=== PATIENT | female | born 1985 | race Caucasian/White ===

== ENCOUNTER 2019-01-10 09:05 | Day surgery (SDC) | payer OTHER ==
--- NOTE | 2019-01-10 09:14 | PDOC.FPROB ---
FMR OB H&P: HPI - History of Present Illness Chief Complaint: Scheduled iron transfusion History of Present Illness: 33 yo @ 34.5 by 7.6 wk US presents for iron transfusion for anemia of . She reports taking oral iron BID, not taking vitamins. Has had consistent drops in Hgb, reportedly 8 this week. Reports intermittent headache associated with blurry vision, as well as weakness, dizziness over past week. Denies prior history of anemia in and has never had iron transfusion before. 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 denies: fever/chills Eyes: reports: vision changes ENT: denies: nasal congestion Cardiovascular: denies: palpitation, edema Respiratory: reports: shortness of breath. denies: cough Gastrointestinal: reports: constipation. denies: nausea, vomiting Genitourinary (Female): denies: dysuria, vaginal discharge, vaginal bleeding, contractions Neurologic: reports: weakness, headache. denies: syncope Integumentary: denies: rash, lesions FMR OB H&P: Vital Signs - Maternal Vital signs: BP 111/73, 85 - Heart Tones Baseline: 150 Variability: moderate Acceleration: present Deceleration: absent [place] contractions every: none FMR OB H&P: Physical Exam - Physical Exam General: NAD, awake, alert and oriented HEENT: normocephalic and atraumatic, MMM Heart: RRR, normal S1/S2, no edema General: CTAB, no respiratory distress Abdomen: soft, gravid, non-tender Skin: good tugor, capillary refill <2 seconds Lymphatic: no unusual bruising or bleeding Psychiatric: normal mood and affect FMR OB H&P: A/P - Problem List (1) Anemia affecting Current Visit: Yes Status: Acute Code(s): O99.019 - ANEMIA COMPLICATING , UNSPECIFIED TRIMESTER (2) Grand multipara Current Visit: Yes Status: Acute Code(s): Z64.1 - PROBLEMS RELATED TO MULTIPARITY (3) Current Visit: Yes Status: Acute Discussion: Date/Time: 01/10/19 0912 33 yo @ 34.5 wk by 1T US presents for scheduled iron transfusion. Anemia of - on PO iron with consistent decrease in Hgb and pt now symptomatic - will start Venofer transfusion sIUP - NST reactive, no concerns Elevated BP without diagnosis of HTN - one elevated BP in early , none since Glucose intolerance - failed 1hr GTT, do not have 3hr GTT result on file OB hx includes: grandmultip, hx PPH s/p blood transfusion Dispo: Plan for iron transfusion and discharge after completion This H&P was discussed with Dr. Davis who agree with the above documentation and plan. Addendum - Attending - Attending Attestation Date/Time: 01/10/19 [id number] I personally evaluated the patient and discussed the management with Dr. Long. I agree with the History, Examination, Assessment and Plan documented above with any addition or exceptions noted below.
[2019-01-10] MEDS ORDERED: Acetaminophen 500 MG TAB PO SCH (09:30)
[2019-01-10] MEDS ORDERED: Sodium Chloride 0.9% 1,000 ML IV SCH (09:30)
[2019-01-10 09:45] VITALS: BMI 26.6
[2019-01-10] MEDS ORDERED: Iron Sucrose Complex 500 MG in Sodium Chloride 0.9% 250 ML 250 ML IVPB SCH (10:00)
--- NOTE | 2019-01-10 14:26 | PDOC.EVN ---
Event Note - Event Note Event Note: Iron infusion successfully completed. Patient discharged home. Has follow up appointment at [facility] tomorrow. Patient encouraged to keep this appt.
== END 2019-01-10 14:40 | disposition home health service (06) ==
LOC: L&D/OP 09:05
PROVIDERS: ATTEND Family Medicine
DX: O99.013 Anemia complicating pregnancy, third trimester (principal); D64.9 Anemia, unspecified; O09.43 Supervision of pregnancy with grand multiparity, third trimester; O99.89 Other specified diseases and conditions complicating pregnancy, childbirth and the puerperium; R03.0 Elevated blood-pressure reading, without diagnosis of hypertension; O99.283 Endocrine, nutritional and metabolic diseases complicating pregnancy, third trimester; E74.39 Other disorders of intestinal carbohydrate absorption; Z3A.30 30 weeks gestation of pregnancy; Z79.899 Other long term (current) drug therapy
CPT/HCPCS: 96365; 96366; J1756; J7050

== ENCOUNTER 2019-01-22 12:32 | Day surgery (SDC) | payer OTHER ==
[2019-01-22] MEDS ORDERED: hydrALAZINE 20 MG/ML VIAL SLOW IVP PRN (13:56)
--- NOTE | 2019-01-22 14:00 | PDOC.FPROB ---
FMR OB H&P: HPI - History of Present Illness Chief Complaint: elevated FHT during US Indentification: 33 y/o @ 36.3 WGA by 7.6 wk sono History of Present Illness: presents for tachycardia noted in US clinic to 190-200s. She reports leaking watery fluid since 10am. She denies any vaginal bleeding, vaginal d/c. Reports few intermittent ctx that are not painful. She endorses movement. Reports some urinary frequency. Denies any fever, chills, palpitations. Primary Care Physician: Dr. 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, - Surgical History Sx History: Denies - Social History Social History: Denies any tobacco, EtOH, or drug use - Family History Family History: noncontributory FMR OB H&P: Medications - Current Home Medications: Medication Instructions Recorded Confirmed Type Ferrous Fumarate [Ferrocite] 324 mg PO BID 01/10/19 01/22/19 History Pnv No.95/Ferrous Fum/Folic AC 50 mg PO DAILY 01/22/19 01/22/19 History [ [place]] Allergies/Adverse Reactions: Allergies Allergy/AdvReac Type Severity Reaction Status Date / Time No Known Allergies Allergy Verified 01/22/19 13:14 FMR OB H&P: ROS - Review of Systems General: denies: fever/chills, fatigue Eyes: denies: vision changes, double vision ENT: denies: nasal congestion, rhinorrhea Cardiovascular: denies: chest pain, edema Respiratory: denies: cough, shortness of breath Gastrointestinal: denies: abdominal pain, nausea, vomiting Genitourinary (Female): reports: vaginal discharge, contractions. denies: dysuria, hematuria, vaginal bleeding Musculoskeletal: denies: pain, tenderness Neurologic: denies: numbness, weakness Integumentary: denies: itching, rash Endocrine: denies: cold intolerance, heat intolerance Hematologic/Lymphatic: denies: prolonged or excessive bleeding, enlarged lymph nodes Psychological: denies: depression, anxiety FMR OB H&P: Vital Signs - Maternal Vital signs: BP 105/60, HR 77, RR16, Temp 98.9 - Heart Tones Baseline: 150 Variability: moderate Acceleration: present Deceleration: absent Category: category 1 [place] contractions every: rare FMR OB H&P: Physical Exam - Physical Exam General: NAD, awake, alert and oriented HEENT: normocephalic and atraumatic, EOMI, MMM, conjunctiva clear, grossly normal vision, grossly normal hearing Neck: supple, no LAD Heart: RRR, normal S1/S2, no murmurs/rubs/gallops, pulses present, no edema General: CTAB, no respiratory distress, good air movement, no rales/rhonchi, no wheezing Abdomen: soft, gravid, non-tender Musculoskeletal: normal gait and station, FROM in all four extremities Neurological: cranial nerves II through XII intact, no focal deficit Skin: good tugor, capillary refill <2 seconds Lymphatic: no unusual bruising or bleeding, no purpura Psychiatric: intact recent and remote memory, good judgement and insight - Pelvic Exam Vulva: normal hair distribution Cervix: no blood Deviation from normal: white vaginal discharge, negative pooling and valsalva SVE: 0.5/20/-3 FMR OB H&P: A/P - Problem List (1) tachycardia Status: Acute Code(s): [id number] - Assessment and Plan: Appears to have resolved. Could have been an acceleration vs resolved tachycardia. No signs of infection FHT cat 1 -Will continue routine f/u (2) Vaginal discharge during Status: Acute Code(s): O26.899 - OTH RELATED CONDITIONS, UNSPECIFIED TRIMESTER; N89.8 - OTHER SPECIFIED NONINFLAMMATORY DISORDERS OF VAGINA Qualifiers: Trimester: third trimester Qualified Code(s): O26.893 - Other specified related conditions, third trimester; N89.8 - Other specified noninflammatory disorders of vagina Assessment and Plan: Sterile spec performed with negative pooling and valsalva White d/c noted Amnisure and VP3 sent Will do cath UA for urinary frequency -D/c home pending results Disposition: Will d/c pending results Discussion: Date/Time: 01/22/19 0900 This H&P was discussed with Dr. Prather who agrees with the above documentation and plan. Signature: Elidia Monroy MD, PGY-3 Addendum - Attending - Attending Attestation Date/Time: 01/22/19 [id number] I personally evaluated the patient and discussed the management with Dr. Monroy. I agree with the History, Examination, Assessment and Plan documented above with any addition or exceptions noted below. PE: vital signs reviewed and wnl. abdomen soft nttp, amnisure test neg SSE neg for pooling. FHT reactive nst and cat 1 tracing. vp3 neg/neg/neg. PT discharged home with precautions.
[2019-01-22 14:55] LABS: Amnisure Test No Membranes Rupture (No Rupture)
[2019-01-22 14:56] LABS: Amnisure Internal Control QC ACCEPTABLE (ACCEPTABLE)
[2019-01-22 16:07] VITALS: BMI 28.5
== END 2019-01-22 16:05 | disposition home health service (06) ==
LOC: L&D/OP 12:32
PROVIDERS: ATTEND Obstetrics & Gynecology
DX: O76 Abnormality in fetal heart rate and rhythm complicating labor and delivery (principal); O99.89 Other specified diseases and conditions complicating pregnancy, childbirth and the puerperium; N89.8 Other specified noninflammatory disorders of vagina; R35.0 Frequency of micturition; O99.012 Anemia complicating pregnancy, second trimester; D64.9 Anemia, unspecified; Z3A.36 36 weeks gestation of pregnancy; Z79.899 Other long term (current) drug therapy
CPT/HCPCS: 84112; 87480; 87510; 87660